=== PATIENT | female | born 1995 | race African-American/Black ===

== ENCOUNTER 2017-03-07 22:19 | Inpatient (IN) | payer OTHER ==
[~2017-03-07] VITALS: Ht 160 cm; Wt 102.5 kg
[~2017-03-07 22:19] MED LIST: AMOXICILLIN500 M1 PO; BACTRIM DS 8001 TAB PO; FLEXERIL10 MG PO; IBUPROFEN600 MG PO; MOTRIN 600 MG600 MG PO; PRENATABS RX T1 EACH PO; ZOFRAN ODT4 MG SL; ZOFRAN4 M1 SL; ZOFRAN4 M2 PO
[2017-03-08 04:39] LABS: ABSOLUTE BASOPHIL COUNT 0 /CUMM (0.0-0.2); ABSOLUTE EOSINOPHIL COUNT 0 /CUMM (0.0-0.7); ABSOLUTE LYMPH COUNT 1.1 /CUMM (1.2-3.4); ABSOLUTE MONOCYTE COUNT 0.6 /CUMM (0.10-0.60); BASOPHIL % 0.1 % (0.0-2.0); EOSINOPHIL % 0.2 % (0-5); GRANULOCYTE % 87.3 % (42.2-75.2); HEMATOCRIT 35.5 % (37-47); MEAN CORPUSCULAR HGB 28.6 PG (27.0-31.0); MEAN CORPUSCULAR HGB CONC 32.5 G/DL (33.0-37.0); MEAN CORPUSCULAR VOLUME 88.3 FL (81.0-99.0); MEAN PLATELET VOLUME 8.7 FL (7.4-10.4); PLATELET COUNT 259 /CUMM (130-400); RBC DISTRIBUTION WIDTH 13.8 % (11.5-14.5); RED BLOOD CELL CT 4.03 /CUMM (4.20-5.40); WHITE BLOOD CELL COUNT 13.7 /CUMM (4.8-10.8)
--- NOTE | 2017-03-08 09:36 | History & Physical ---
General Information and HPI MD Statement: I have seen and personally examined SERA JOHNSTON and documented this H&P. The patient is a 21 year old female at [39 ] weeks and [2] days gestation who presented with a chief complaint of [LABOR]. Source of Information: patient, old records Exam Limitations: no limitations History of Present Illness: 21 YO LMP 06/06/2016 AND CIARA 03/13/2017 PRESENTED INITIALLY IN EARLY LABOR - S/P 6 TO 7 HRS OF THERAPEUTIC REST, CERVICAL EXAMS REMAINED 2 TO 3 CM. PT WAS ADMITTED @ 6 AM AND GR B STR PROTOCAL WAS INITIATED W/ PCN. LATER @ 7:30 PT WAS FOUND TO BE 8 CM. EPIDURAL WAS PLACED . ISSUES FOR THIS 1.) TRANSFER OB @ 20 WKS 2.) INITIAL BMI 36 @ TRANSFER- NOW BMI 40- NL GTT @ 28 WKS AND NEG SHOULDER SCREEN BASED ON EF WT @ 38 WKS OF 7#10 OZ. 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 Home Who Do You Live With? self Primary Language: Latvian Smoking Status: Never Smoked ETOH Use: denies use Illicit Drug Use: denies illicit drug use Review of Systems Review of Systems: NEG FOR CARDIAC PULMONARY GI COMPLAINTS Exam & Diagnostic Data Last 24 Hrs of Vital Signs/I&O T 98.7 P 82 BP 138/72 R 16 PO2 99% Intake & Output 03/08 1600 03/08 0800 03/08 0000 Intake Total Output Total Balance Patient 226 lb Weight Obstetric Exam Wgt Gained During : 35 Pelvimetry: UNPROVEN Dilation (cm): 9 Effacement (%): 90 Station: -2 Membranes: SROM Fluid: clear Fundal Height (cm): 38 Multiple Gestation? No Contractions: Q 2 TO 3 #1 - FHR Baseline: 134 Category: 1 Estimated Weight: 7#10oz Presentation: VTX Patient for Induction? No Physical Exam General Appearance Alert, Oriented X3, Cooperative, Mild Distress Skin No Significant Lesion Cardiovascular Regular Rate Lungs Clear to Auscultation Abdomen Normal Bowel Sounds, Soft, No Tenderness, No Hepatospenomegaly, GRAVID UTERUS UTERUS NONTENDER CONTXNS Q 2 TO 3 MIN FHR 130'S Neurological Normal Gait, Normal Speech Extremities No Tenderness/Swelling Reproductive (FEMALE) Normal female genitalia Labs Blood Type & Rh: A+ Antibody Screen: NEG Hct/Hgb & Platelets #1: 12.2/37.2 213,000 Hct/Hgb & Platelets #2: 11.3/35.8 246,000 Rubella: IMM VDRL #1: N VDRL #2: N HbsAg: N HIV #1: N HIV #2 N 1 Hr P 3 Hr PG: N/A Group B Strep: POS Initial Ultrasound: 08/02/2016 S=D=U/S @ 8 10/15 WKS Anatomy Ultrasound: 10/19/2016 ATU 19 WKS NL ANATOMY Ultrasound for EFW: 03/02/2017 64% 7#10oz Genetic Testing: MAT T 21 WNL Last 24 Hrs of Labs/Bran: Laboratory Tests 03/08/17 0415: CBC w Diff NO MAN DIFF REQ, RBC 4.03 L, MCV 88.3, MCH 28.6, RDW 13.8, MPV 8.7, Gran % 87.3 H, Lymphocytes % 7.9 L, Monocytes % 4.5, Eosinophils % 0.2, Basophils % 0.1, Absolute Granulocytes 12.0 H, Absolute Lymphocytes 1.1 L, Absolute Monocytes 0.6, Absolute Eosinophils 0, Absolute Basophils 0, PUBS MCHC 32.5 L, Urine Color YEL, Urine Clarity CLEAR, Urine pH 6.5, Ur Specific Mccomb 1.025, Urine Protein 100 H, Urine Ketones NEG, Urine Nitrite NEG, Urine Bilirubin NEG, Urine Urobilinogen 0.2, Ur Leukocyte Esterase NEG, Ur Microscopic SEDIMENT EXAMINED, Urine RBC 1-3, Urine WBC 1-3 H, Ur Epithelial Cells MOD H, Urine Bacteria MANY H, Urine Hemoglobin NEG, Urine Glucose NEG Microbiology 03/08 0841 URINE ROUT: Urine Culture - COLB Assessment/Plan Assessment/Plan: IUP @ TERM IN LABOR + GR B STR (PCN PROTOCAL) BMI 40 NEG SHOULDER SCREEN EPIDURAL IN PLACE ANTICIPATE - FOLLOW CLOSELY As Ranked By This Provider Problem List: 1. 2. BMI greater than 40 Core Measures/Miscellaneous Patel Catheter Date In: 03/08/17 Still Needed? Yes Venous Thromboembolism VTE Risk Factors: Obesity, / VTE Contraindications: Abn Clotting Times (FALL RISK) VTE Diagnosis: No Beta Yesika Is Beta Yesika a Home Med? No If No, Why Not? NOT INDICATED Antibiotics Is Patient on Antibiotics? Yes If Yes: prophylaxis Attending MD Review Statement Attending Statement Attending MD Statement: examined this patient, reviewed EMR data (avail), discussed w/nursing Attending Assessment/Plan: Sebastián MANLEY MD
--- NOTE | 2017-03-08 12:12 | PN- OBGYN ---
Surgical Brief Attending Note Brief Attending Note: LABOR UPDATE: PT QUICKLY PROGRESSED OVER 3 TO 4 HRS FROM 2TO 3 CM TO 8 CM. RECEIVED HER EPIDURAL, AND THEN HAD SROM @ 9 CM @ 09:01 CLEAR FLUID. VTX REMAINED @ 0 TO -1 STATION. CONTRACTION PATTERN SPACED OUT TO Q 3 TO 5 MIN. IUPC PLACED AND CONTRACTIONS WERE FOUND TO BE INADEQUATE IN INTENSITY. PITOCIN AUGMENTATION WAS BEGUN. ABNORMAL CONTRACTION PATTERN ON 2 mu PITOCIN - COUPLING AND PROLONGED CONTRACTIONS. PITOCIN DECREASED TO 1 MU. MONTEVIDEO UNITS RANGED FROM 200 TO 225. FHR 130- 140 W/ ADEQ VARIABILITY GOOD ACCELS AND OCCASIONAL MILD VARIABLE DECELLS (no FHR lower than 100 bpm/ AND DECELLS < 40 sec DURATION) BRIEN OF THE CERVIX @ 12 NOON SWOLLEN ANT LIP AND CX NOW @ 8 CM LABILE BP BUT NO 2 BP's > 160 SYSTOLIC / OR 110 DIASTOLIC - URINE MS / CR RATIO SENT ASSESSMENT: ARREST OF DILATION- TO PROCEED TO C/S (ADD 2 GRAMS IV KEFZOL, LOVENOX PP) BE PREPARED FOR PP UTERINE ATONY (PITOCIN/ HEMABATE- NO METHERGINE DUE TO BP ELEVATION) ANESTHESIA AWARE OF ELEVATED BP MAY NEED LABETALOL IF MS/CR R >/= 0.3 MAY NEED MGSO4 Sebastián MANLEY MD
[2017-03-08 14:31] LABS: ABSOLUTE BASOPHIL COUNT 0 /CUMM (0.0-0.2); ABSOLUTE EOSINOPHIL COUNT 0 /CUMM (0.0-0.7); ABSOLUTE GRANULOCYTE CT 17.4 /CUMM (1.4-6.5); ABSOLUTE LYMPH COUNT 1.2 /CUMM (1.2-3.4); ABSOLUTE MONOCYTE COUNT 1.4 /CUMM (0.10-0.60); BASOPHIL % 0 % (0.0-2.0); EOSINOPHIL % 0 % (0-5); GRANULOCYTE % 87.2 % (42.2-75.2); HEMATOCRIT 34.8 % (37-47); MEAN CORPUSCULAR HGB 28.8 PG (27.0-31.0); MEAN CORPUSCULAR HGB CONC 32.7 G/DL (33.0-37.0); MEAN CORPUSCULAR VOLUME 88.1 FL (81.0-99.0); MEAN PLATELET VOLUME 8.5 FL (7.4-10.4); PLATELET COUNT 242 /CUMM (130-400); RBC DISTRIBUTION WIDTH 14.1 % (11.5-14.5); RED BLOOD CELL CT 3.95 /CUMM (4.20-5.40)
--- NOTE | 2017-03-08 17:57 | Operative Report ---
Operative/Inv Procedure Report Surgery Date: 03/08/17 Name of Procedure: Primary low cervical transverse section Pre-Operative Diagnosis: Arrest of dilation at 9 cm, despite augmentation with Pitocin and monitoring of contractions with IUPC -induced hypertension with severe features Post-Operative Diagnosis: Same. Occiput posterior presentation with deflexed head Estimated Blood Loss: 450 ML Surgeon/Brand Protection Manager: Jacy Tucker MD, Asst. Dr. Edu Coyle Anesthesia: epidural Monitors: Blood pressure cuff EKG electrodes pulse oximeter IV Fluids: 1100 crystalloid Implants: None Urine Output: 100 ML in the OR Drains: Patel Specimens: None Complications: None Condition: Good Operative Indication: 21-year-old with arrest of dilation at 9 cm, evidence of cervical swelling of the anterior lip despite Pitocin augmentation and monitoring of contractions with IUPC. Patient initially had labile blood pressure in labor but towards the end of the labor process was having increased elevations of blood pressure. Urine protein creatinine ratio was sent, from the Patel catheter, on the way to the OR Operative/Procedure Note Note: Patient was brought to the operating room and transferred to the OR table. Timeout was discussed by the team and agreed upon. Clinical concerns for this surgery were 4 significant blood pressure elevations during the surgery that may require IV antihypertensives, and possible post delivery uterine atony so Pitocin and Hemabate and compression balloon were present in the OR. In labor she had been receiving IV penicillin per group B strep protocol, the patient did receive 2 g Kefzol on arrival to the operating room. Patient was positioned in a dorsal supine position with a right hip wedge. Patient Andrei was then pneumatic compression boots in labor and had had a Patel catheter placed in labor when she initially had her epidural. In the OR she was prepped draped usual sterile fashion after obtaining heart rate which was stable at 140. After evidence of adequate anesthesia, the area of the Pfannenstiel incision was infiltrated with half percent Marcaine. Skin incision was made and then carried down the fascia fascia incised transversely. Rectus muscles divided longitudinally. Parietal peritoneum was identified elevated and incised transversely. The utero vesicular fold the bladder peritoneum was identified elevated and incised transversely. The low uterine segment incision was made but the uterine cavity was entered bluntly clear fluid was noted. Infant was found to be in a occiput posterior presentation with a deflexed head. The surgeon's hand was introduced into the uterine cavity, the head was gently lifted from the pelvis and carefully flexed to facilitate delivery of the vertex through the uterine and abdominal wall incisions. Mouth and nasopharynx were bulb suctioned on the intra-abdominal wall. The rest of infant's body was delivered without complication at teen: 02 on 03/08/2017. Live viable male infant 7 lbs. 2 oz. Apgars 9 and 9 and 9 cord was doubly clamped cut and was handed to the pediatric team for evaluation. Placenta was not initially delivering spontaneously so the placenta was then manually removed intact normal configuration 3 vessel cord. Uterus was exteriorized and draped with wet lap pad. Intramyometrial Pitocin was then injected within the uterine wall. Uterine cavity was wiped clean with a sterile lap pad. Uterine incision was inspected there were no cervical extensions. The uterine incision was closed with 2 separate layers first layer running locking second layer running imbricating. There was evidence of a boggy low uterine segment, so 1 dose of Hemabate was injected into the low uterine segment myometrium, with good clinical result. Pelvis was irrigated fluid was aspirated. The uterus was returned the abdominal pelvic cavity. Normal configuration of the uterus fallopian tubes and ovaries was noted. Hemostasis of the now closed uterine incision, remained adequate. Parietal peritoneum was closed with running suture. Muscles reapproximated midline with a horizontal mattress suture. Fascia closed with 2 separate segments running intermittently locking suture. There was good hemostasis at all levels of closure. Subcuticular tissue was then irrigated and the fluid was aspirated. Small bleeders in the subcutaneous tissue were managed with unipolar cautery. The subcutaneous tissue was closed with running suture. Subcuticular closure of the skin was undertaken with 4-0 Biosyn. At completion the procedure Quiana pressure abdominal wall dressing was applied. While patient was still on the OR table fundal massage was undertaken there was no significant vaginal bleeding at this time no residual blood of note vaginal vault and no clot present in that area. There was no significant vaginal bleeding at this time. Sponge instrument and lap pad counts were correct 4. Patient was taken recovery room in good condition. Of note assisted through the procedure patient had markedly elevated blood pressure systolic greater than 160 mmHg. Patient was managed by anesthesia with a total of 35 mg labetalol and 2 mg of hydralazine. Following the administration of intravenous antihypertensive medication, her systolic blood pressure remained in the 130s diastolic in the 70-80 range. Also at the end of the procedure her urine protein creatinine ratio was finally available and it was 2.9. This gave us the diagnosis of PIH with severe features. Patient will be started on mag sulfate 6 g bolus 2 g an hour infusion for 24 hours after delivery. Patient was also started on labetalol 200 mg twice a day Findings: Time of delivery 13:02 on 03/08/2017 live viable male infant 7 lbs. 2 oz. Apgars 9 and 9 and 9 normal placenta 3 vessel cord normal uterus tubes and ovaries. Some low segment atony that required intravenous Pitocin intramyometrial Pitocin intramyometrial Hemabate. Markedly elevated blood pressures in the OR requiring 35 mg labetalol and 2 mg of hydralazine by anesthesia. Protein creatinine ratio was available at the end of the procedure protein creatinine ratio was found to be elevated at 2.9. This gave the patient a diagnosis of PIH with severe features. Magnesium bolus of 6 g and 2 g an hour infusion was started . Patient was also started on 200 twice a day of oral labetalol Discharge Disposition: CC: NILO CONDE,EDU Rene
--- NOTE | 2017-03-08 18:02 | Labor & Delivery Summary ---
Delivery Summary Section: Section: primary Indication: Arrest of dilation in labor at 9 cm, inadequate contractions despite intravenous Pitocin augmentation and monitoring of uterine contractions with intrauterine pressure catheter. Labile blood pressures while in labor. In the operating room with markedly elevated blood pressures requiring IV antihypertensive medication and a protein creatinine ratio which was revealed to be 2.9 patient was given the diagnosis of PIH with severe features Episiotomy/Lacerations: Episiotomy/Lacerations: none Placenta: Placenta: spontanteous, normal, 3 vessel, manual Anesthesia: epidural Baby's Weight: Live viable male infant 7 lbs. 2 oz. Apgars - 1 Min: 9 Apgars - 5 Min: 9 Additional Comments: Patient rapidly dilated to 8 cm and then remained at 9 cm's despite Pitocin augmentation and monitoring of uterine contractions with intrauterine pressure catheter. Despite Pitocin augmentation we could not get an adequate contraction pattern. Cervix began swelling with a very elongated anterior cervical edge. Blood pressures have been labile in labor but never really reached consistently to values of either a systolic of 160 or diastolic of 110 more than once during the labor process. In the operating room she had markedly elevated blood pressures with systolic greater than 160 diastolic greater than 110 patient received a total dose of 35 mg IV labetalol and 2 mg IV hydralazine from anesthesia. Also while in the OR her protein creatinine ratio I'll was found to be 2.9. Patient was given the diagnosis of PIH with severe features and will be started on mag sulfate in the recovery room In the operating room the baby was found to be in a deflexed occiput posterior position. The pelvic inlet seemed to narrow. After delivery the baby there was some low segment atony that required IV Pitocin, intramyometrial Pitocin and intramyometrial Hemabate. The uterine atony resolved with medication. Postoperatively patient was begun on mag sulfate 6 g bolus 2 g an hour and then 200 twice a day of oral labetalol.
[2017-03-09 06:19] LABS: ABSOLUTE BASOPHIL COUNT 0 /CUMM (0.0-0.2); ABSOLUTE EOSINOPHIL COUNT 0 /CUMM (0.0-0.7); ABSOLUTE LYMPH COUNT 1.7 /CUMM (1.2-3.4); ABSOLUTE MONOCYTE COUNT 1.9 /CUMM (0.10-0.60); BASOPHIL % 0 % (0.0-2.0); EOSINOPHIL % 0 % (0-5); GRANULOCYTE % 81.6 % (42.2-75.2); HEMATOCRIT 31.1 % (37-47); MEAN CORPUSCULAR HGB CONC 32.3 G/DL (33.0-37.0); MEAN CORPUSCULAR VOLUME 89.6 FL (81.0-99.0); PLATELET COUNT 228 /CUMM (130-400); RED BLOOD CELL CT 3.47 /CUMM (4.20-5.40); WHITE BLOOD CELL COUNT 19.6 /CUMM (4.8-10.8)
--- NOTE | 2017-03-09 13:39 | PN- OBGYN ---
Surgical Brief Attending Note Brief Attending Note: PER NURSING, PT HAS BEEN DOING QUITE WELL AND WITHOUT TRUONG,VIS CHANGES, RUQ PAIN. LOCHIA IS NORMAL. SHE IS NURSING. +UP TO CHAIR. MAG AND KOENIG CATHETER DISCONTINUED AROUND 11 AM. ON LABETOLOL 200BID.Laboratory Tests 03/09/17 0607: CBC w Diff NO MAN DIFF REQ, RBC 3.47 L, MCV 89.6, MCH 29.0, RDW 14.0, MPV 8.0, Gran % 81.6 H, Lymphocytes % 8.5 L, Monocytes % 9.9 H, Eosinophils % 0, Basophils % 0 L, Absolute Granulocytes 16.0 H, Absolute Lymphocytes 1.7, Absolute Monocytes 1.9 H, Absolute Eosinophils 0, Absolute Basophils 0, PUBS MCHC 32.3 L 03/08/17 1815: Magnesium 4.0 H 03/08/17 1416: Estimated GFR > 60, Uric Acid 4.9, AST 21, ALT 35, Lactate Dehydrogenase 431, CBC w Diff MAN DIFF ORDERED, RBC 3.95 L, MCV 88.1, MCH 28.8, RDW 14.1, MPV 8.5, Gran % 87.2 H, Lymphocytes % 6.0 L, Monocytes % 6.8, Eosinophils % 0, Basophils % 0 L, Absolute Granulocytes 17.4 H, Segmented Neutrophils 81 H, Band Neutrophils 8 H, Absolute Lymphocytes 1.2, Lymphocytes 7 L, Monocytes 3, Absolute Monocytes 1.4 H, Eosinophils 1, Absolute Eosinophils 0, Absolute Basophils 0, Platelet Estimate ADEQUATE, Hypochromic-Microcytic 1+, Anisocytosis 1+, PUBS MCHC 32.7 L 03/08/17 1159: Ur Random Creatinine 127.1, U Random Total Protein 377 H, Protein/Creatinin Ratio 2.9 H 03/08/17 0415: CBC w Diff NO MAN DIFF REQ, RBC 4.03 L, MCV 88.3, MCH 28.6, RDW 13.8, MPV 8.7, Gran % 87.3 H, Lymphocytes % 7.9 L, Monocytes % 4.5, Eosinophils % 0.2, Basophils % 0.1, Absolute Granulocytes 12.0 H, Absolute Lymphocytes 1.1 L, Absolute Monocytes 0.6, Absolute Eosinophils 0, Absolute Basophils 0, PUBS MCHC 32.5 L, Urine Color YEL, Urine Clarity CLEAR, Urine pH 6.5, Ur Specific Leonidas 1.025, Urine Protein 100 H, Urine Ketones NEG, Urine Nitrite NEG, Urine Bilirubin NEG, Urine Urobilinogen 0.2, Ur Leukocyte Esterase NEG, Ur Microscopic SEDIMENT EXAMINED, Urine RBC 1-3, Urine WBC 1-3 H, Ur Epithelial Cells MOD H, Urine Bacteria MANY H, Urine Hemoglobin NEG, Urine Glucose NEG Microbiology 03/08 0829 URINE ROUT: Urine Culture - RES VSSAF SINCE MIDNIGHT P 86-94, 123-131/57-64 UOP 1865/1800 SINCE MIDNIGHT PRIOR TO MIDNIGHT:1000IN/3000OUT FF@U, APPROPRIATELY TENDER, DRESSING CLEAN AND DRY EXT: NO CALF TENDERNESS, 2+PEDAL EDEMA A/P POD 1. DOING WELL. PREECLAMPSIA WITH SEVERE FEATURES. RECEIVED IV LABETOLOL IN OR, THEN PLACED ON MAG SULFATE FOR SEIZURE PROPHYLAXIS FOR ABOUT 24 HOURS. HAD GOOD URINE OUTPUT. ASX. BPS WELL CONTROLLED ON ORAL LABETOLOL. PLAN ROUTINE POSTOP CARE AND CONTINUED BP FOLLOW UP.
--- NOTE | 2017-03-10 10:33 | PN- Post Delivery/GYN ---
Subjective Subjective: feeling well Review of Systems Constitutional: Reports: no symptoms. Denies: chills, fever. Cardiovascular: Denies: chest pain. Respiratory: Denies: cough, short of breath. Gastrointestinal: Denies: abdominal pain, nausea, vomiting. Neurological/Psychological: Denies: anxiety, depressed, headache, paresthesia. Objective Last 24 Hrs of Vital Signs/I&O bp narmal on labatalol Vital Signs Date Time Temp Pulse Resp B/P B/P Pulse O2 O2 Flow FiO2 Mean Ox Delivery Rate 03/09 2011 98.1 88 18 136/82 Physical Exam General Appearance Alert, Oriented X3, Cooperative, No Acute Distress Cardiovascular Regular Rate Lungs Clear to Auscultation Abdomen Soft, fundus firm, incision clean and dry Current Medications: Current Medications Sig/Darlene Start time Last Medication Dose Route Stop Time Status Admin Diphenhydramine HCl 25 MG Q6P PRN 03/08 1445 AC IV Docusate Sodium 100 MG AT BEDTIME PRN 03/08 1400 AC PO Enoxaparin Sodium 50 MG DAILY 03/09 1000 AC 03/09 SC 0352 Hydroxyzine HCl 100 MG AT BEDTIME NEED.. 03/09 0000 AC PO Ibuprofen 800 MG .STK-MED ONE 03/10 0220 DC PO 03/10 0221 Ibuprofen 800 MG .STK-MED ONE 03/09 2000 DC PO 03/09 2001 Ibuprofen 800 MG .STK-MED ONE 03/09 1428 DC PO 03/09 1429 Ibuprofen 800 MG Q6P PRN 03/08 1400 AC 03/10 PO 0822 Ketorolac 30 MG Q6H 03/08 1330 DC 03/09 Tromethamine IV 03/09 1931 0825 Labetalol HCl 200 MG 0800,03/09 0800 AC 03/10 PO 0822 Lactated Ringer's 1,000 ML Q6H 03/08 1400 AC 03/09 IV 0550 Magnesium Hydroxide 30 ML DAILY NEEDED PRN 03/08 1400 AC PO Metoclopramide HCl 10 MG Q6P PRN 03/08 1445 AC IV Naloxone HCl 0.2 MG .EVERY 5 MINUTES PRN 03/08 1445 AC IV Oxycodone/ 1 TAB Q4P PRN 03/08 1400 AC Acetaminophen PO Oxycodone/ 2 TAB Q4P PRN 03/08 1400 AC Acetaminophen PO Assessment/Plan Assessment/Plan pod #2 vss bp ok on labatalol 100mg bid Problem List: 1. Attending MD Review Statement Attending Statement Attending MD Statement: examined this patient, discussed with nursing
[2017-03-11 08:03] VITALS: BP 140/90
[2017-03-11] MEDS ORDERED: PERCOCET 5-3251 EACH PO (10:13)
[2017-03-11] MEDS ORDERED: LABETALOL HCL200 M1 PO (10:13)
--- NOTE | 2017-03-11 10:17 | PN- Post Delivery/GYN ---
Subjective Subjective: feeling well Review of Systems Constitutional: Reports: no symptoms. Denies: chills, fever. EENTM: Denies: blurred vision, double vision, visual changes. Cardiovascular: Denies: chest pain, edema. Respiratory: Denies: cough, short of breath. Gastrointestinal: Denies: distention, nausea, vomiting. Neurological/Psychological: Denies: anxiety, depressed. Objective Last 24 Hrs of Vital Signs/I&O vss bp ok on labatalol 200 bid Vital Signs Date Time Temp Pulse Resp B/P B/P Pulse O2 O2 Flow FiO2 Mean Ox Delivery Rate 03/11 0803 97.9 79 20 140/90 03/10 2100 97.8 85 20 122/78 Physical Exam General Appearance Alert, Oriented X3, Cooperative, No Acute Distress Cardiovascular Regular Rate Lungs Clear to Auscultation Abdomen Normal Bowel Sounds, Soft, No Tenderness, fundus firm incision clean and dry Extremities No Edema Pelvic (FEMALE) lochia serosanganous Current Medications: Current Medications Sig/Darlene Start time Last Medication Dose Route Stop Time Status Admin Diphenhydramine HCl 25 MG Q6P PRN 03/08 1445 AC IV Docusate Sodium 100 MG AT BEDTIME PRN 03/08 1400 AC PO Enoxaparin Sodium 50 MG DAILY 03/09 1000 AC 03/11 SC 0231 Hydroxyzine HCl 100 MG AT BEDTIME NEED.. 03/09 0000 AC PO Ibuprofen 800 MG .STK-MED ONE 03/10 2101 DC PO 03/10 2102 Ibuprofen 800 MG .STK-MED ONE 03/10 1507 DC PO 03/10 1508 Ibuprofen 800 MG Q6P PRN 03/08 1400 AC 03/11 PO 0820 Labetalol HCl 200 MG 0800,03/09 0800 AC 03/11 PO 0803 Lactated Ringer's 1,000 ML Q6H 03/08 1400 AC 03/09 IV 0550 Magnesium Hydroxide 30 ML DAILY NEEDED PRN 03/08 1400 AC PO Metoclopramide HCl 10 MG Q6P PRN 03/08 1445 AC IV Naloxone HCl 0.2 MG .EVERY 5 MINUTES PRN 03/08 1445 AC IV Oxycodone/ 1 TAB Q4P PRN 03/08 1400 AC Acetaminophen PO Oxycodone/ 2 TAB Q4P PRN 03/08 1400 AC Acetaminophen PO Assessment/Plan Assessment/Plan pod #3 vss bp controlled on labatalol 200mg BID Problem List: 1. Attending MD Review Statement Attending Statement Attending MD Statement: examined this patient, discussed with family, discussed with nursing
--- NOTE | 2017-03-22 12:55 | Discharge Summary ---
Visit Information Visit Dates Admission Date: 03/08/17 Discharge Date: 03/11/17 Hospital Course Course Attending Physician: SINDHU CONDE,MICKEY Campbell Primary Care Physician: PATIENT HAS NO PRIMARY CARE DR Hospital Course: 21 YO LMP 06/06/2016 AND CIARA 03/13/2017 PRESENTED INITIALLY IN EARLY LABOR - S/P 6 TO 7 HRS OF THERAPEUTIC REST, CERVICAL EXAMS REMAINED 2 TO 3 CM. PT WAS ADMITTED @ 6 AM AND GR B STR PROTOCAL WAS INITIATED W/ PCN. LATER @ 7:30 PT WAS FOUND TO BE 8 CM. EPIDURAL WAS PLACED . ISSUES FOR THIS 1.) TRANSFER OB @ 20 WKS 2.) INITIAL BMI 36 @ TRANSFER- NOW BMI 40- NL GTT @ 28 WKS AND NEG SHOULDER SCREEN BASED ON EF WT @ 38 WKS OF 7#10 OZ. Patient rapidly dilated to 8 cm and then remained at 9 cm's despite Pitocin augmentation and monitoring of uterine contractions with intrauterine pressure catheter. Despite Pitocin augmentation we could not get an adequate contraction pattern. Cervix began swelling with a very elongated anterior cervical edge. Blood pressures have been labile in labor but never really reached consistently to values of either a systolic of 160 or diastolic of 110 more than once during the labor process. In the operating room she had markedly elevated blood pressures with systolic greater than 160 diastolic greater than 110 patient received a total dose of 35 mg IV labetalol and 2 mg IV hydralazine from anesthesia. Also while in the OR her protein creatinine ratio I'll was found to be 2.9. Patient was given the diagnosis of PIH with severe features and will be started on mag sulfate in the recovery room In the operating room the baby was found to be in a deflexed occiput posterior position. The pelvic inlet seemed to narrow. Patient delivered a live viable male 7 lbs. 2 oz. 3220 g, Apgars 9, 9, and 9. After delivery the baby there was some low segment atony that required IV Pitocin, intramyometrial Pitocin and intramyometrial Hemabate. The uterine atony resolved with medication. Postoperatively patient was begun on mag sulfate 6 g bolus 2 g an hour and then 200 twice a day of oral labetalol. 12 hours following delivery she was started on Lovenox daily due to elevated BMI and delivery Patient completed 24 hours of mag sulfate. She was maintained on 200 twice a day of labetalol, , with adequate control of her blood pressure post delivery. By postop day 1 at the 24 hour conrado, the mag sulfate was discontinued, and patient was allowed to ambulate at that time. Patient did well during her hospital time. Patient remained afebrile throughout her hospital time. Patient was easily advanced to regular diet, her pain was controlled with oral pain medications. Her incision remained clean dry and intact without is erythema or induration or drainage. By the third postoperative day she was ready to go home. Admission hemoglobin hematocrit 11.5/35 platelet count 359,000. Postop day #1 hemoglobin hematocrit 10.1/31 platelet count 228,000. Complications: None Allergies: Coded Allergies: NO KNOWN ALLERGIES (NONE 03/08/17) Significant Procedures: Primary low cervical transverse section Pertinent Lab Results: Admission hemoglobin hematocrit 11.5/35 platelet count 359,000. Postop day #1 hemoglobin hematocrit 10.1/31 platelet count 228,000. Urine culture was negative from placement of the Patel Disposition Summary Disposition Principal Diagnosis: Term live child male infant delivered Additional Diagnosis: -induced hypertension with severe features High maternal BMI requiring Lovenox Arrest of dilation necessitating delivery Discharge Disposition: home or self care Discharge Instructions General Discharge Information Code Status: Full Code Patient's Diet: Regular Patient's Activity: Self-limited patient to be at full activities by 6 weeks Follow-Up Instructions/Appts: Patient will be seen in the nursing visit protocol several days after discharge, she'll be seen in the office at 12 and 6 weeks post delivery due to the elevated blood pressure requiring labetalol usage. Medications at Discharge Discharge Medications: Stop taking the following medications: Amoxicillin (Amoxicillin) 500 MG TAB ORAL TWICE DAILY Qty = 20 Sulfamethoxazole/Trimethopri (Bactrim Ds 800 MG-160 MG) 1 TAB TAB ORAL TWICE DAILY Days = 10 Ondansetron HCl (Zofran) 4 MG TABLET ORAL Every 6-8 Hours as Needed as needed for NAUSEA Qty = 15 Continue taking these medications: Ibuprofen (Ibuprofen) 600 MG TAB 1 Tablet ORAL THREE TIMES DAILY Qty = 15 Vit #76/Iron,Carb/FA (Prenatabs Rx Tablet) 1 EACH TABLET 1 Tablet ORAL DAILY Qty = 30 Start taking the following new medications: Labetalol HCl (Labetalol HCl) 200 MG TABLET 200 Milligram ORAL 0800,2000 Qty = 60 No Refills Comments: Last Taken:03/11/2017 Time:0800 Oxycodone HCl/Acetaminophen (Percocet 5-325 MG Tablet) 5 MG-325 MG TABLET 1 Tablet ORAL EVERY 4 HOURS NEEDED as needed for PAIN SCALE 4-6 (MODERATE ) Qty = 30 No Refills Copies To: SINDHU CONDE,MICKEY Campbell Attending Review Statement Documenting Attending: MICKEY MANLEY MD
== END 2017-03-11 12:00 | DRG 540 ==
LOC: CBCO 22:19 → GNO 03-08 00:18
PROVIDERS: Obstetrics & Gynecology; ADMIT Obstetrics & Gynecology
PROC: 10D00Z1 Extraction of Products of Conception, Low, Open Approach (ICD-10-PCS; principal; 2017-03-08)
DX: O62.0 Primary inadequate contractions (principal); O62.1 Secondary uterine inertia; Z3A.39 39 weeks gestation of pregnancy; Z37.0 Single live birth; O13.4 Gestational [pregnancy-induced] hypertension without significant proteinuria, complicating childbirth; O64.0XX0 Obstructed labor due to incomplete rotation of fetal head, not applicable or unspecified; O99.824 Streptococcus B carrier state complicating childbirth
CPT/HCPCS: GNOS; 36415; 81001; 82570; 87086; J0360; J0690; J1650; J1885; J2270; J2405; J3475; J7120